=== PATIENT | male | born 1950 | race Caucasian/White ===

== ENCOUNTER 2018-11-04 08:50 | Outpatient (CLI) | payer MEDICARE, BC ==
--- NOTE | 2018-11-04 12:05 | BD ---
DEXA BONE MINERAL DENSITOMETRY EXAM, DENSITY STUDY: HISTORY: Postmenopausal. FINDINGS: Lumbar Spine: BMD (g/cm2) L1 1.097 T-Score: +0.2 L2 1.268 T-Score: +1.6 L3 1.301 T-Score: +1.8 L4 1.256 T-Score: +1.5 L1-L4 1.237 T-Score: +1.3 Femoral Neck: 0.924 T-Score: +0.0 Total Femur: 1.110 T-Score: +0.5 Impression: 1. Normal bone mineral density of the lumbar spine and left femoral neck. 2. Ten-year fracture risk of a major osteoporotic fracture 5.3% and of a hip fracture 0.4%. These f racture probabilities are calculated for an untreated patient. POS: OFF
== END 2018-11-04 08:51 | disposition home or self-care (01) ==
LOC: BICMAMMO 08:50
PROVIDERS: ATTEND Internal Medicine Rheumatology
DX: M81.0 Age-related osteoporosis without current pathological fracture (principal)
CPT/HCPCS: 77080

== ENCOUNTER 2020-10-26 19:00 | Outpatient (CLI) | payer MEDICARE, BC | END 2020-10-26 19:01 | disposition home or self-care (01) | LOC: SLEEPLAB 19:00 | PROVIDERS: ATTEND Internal Medicine | DX: G47.33 Obstructive sleep apnea (adult) (pediatric) (principal); R06.83 Snoring; I10 Essential (primary) hypertension | CPT/HCPCS: 95810 ==

== ENCOUNTER 2023-04-09 05:57 | Day surgery (SDC) | payer MEDICARE, BC ==
[2023-04-04 14:25] VITALS: BMI 32.5
[2023-04-04 14:52] LABS: Hematocrit 46.9 % (38.8-50.0); Hemoglobin 15.9 g/dL (13.5-17.5); Mean Corpuscular HGB CONC 33.9 g/dL (32.0-36.0); Mean Corpuscular Hemoglobin 29.7 pg (27.0-33.0); Mean Corpuscular Volume 87.7 fl (81.2-95.1); Mean Platelet Volume 10.2 fl (7.4-10.4); Platelet Count 210 10x3/uL (150-450); RBC Distribution Width 13.9 % (11.5-14.5); Red Blood Cell (RBC) Count 5.35 10x6/uL (4.32-5.72); White Blood Cell (WBC) Count 9.7 10x3/uL (3.5-10.5)
[2023-04-04 15:04] LABS: INR-International Normal Ratio 1.1; Prothrombin Time 11.8 sec (9.5-12.1)
[2023-04-04 15:19] LABS: Anion Gap 16 mmol/L (10-20); BUN (Urea Nitrogen) 18 mg/dL (8.4-25.7); Calc. Creatinine Clearance 58 mL/min (70-130); Calcium 9.1 mg/dL (7.8-10.44); Carbon Dioxide 29 mmol/L (23-31); Chloride 98 mmol/L (98-107); Estimated GFR 36; Glucose 98 mg/dL (83-110); Potassium 3.8 mmol/L (3.5-5.1); Sodium 139 mmol/L (136-145)
[2023-04-09] MEDS ORDERED: Protamine Sulfate 50 MG/5 ML VIAL ONE (06:48)
[2023-04-09] MEDS ORDERED: Heparin 10,000 UNITS/ 10 ML VIAL ONE (06:48)
[2023-04-09] MEDS ORDERED: Heparin 25,000 units/D5W 500 ML ONE (06:48)
[2023-04-09] MEDS ORDERED: Sevoflurane 250 ML INH ANEST BOTTLE ONE (06:59)
[2023-04-09] MEDS ORDERED: fentaNYL 50 mcg/mL 1 mL Vial ONE (07:28)
[2023-04-09] MEDS ORDERED: PHENYLEPHRINE-NS 100 MCG/ML 10 ML SYRINGE ONE (07:44)
[2023-04-09] MEDS ORDERED: Ondansetron PF 4 MG/2 ML Vial ONE (07:44)
[2023-04-09] MEDS ORDERED: PROPOFOL 200 MG/20 ML VIAL ONE (07:44)
[2023-04-09] MEDS ORDERED: Glycopyrrolate 0.2 MG/ML 5 ML SYRINGE ONE (07:44)
[2023-04-09] MEDS ORDERED: Rocuronium Bromide 10 MG/ML (10ML VIAL) ONE (07:44)
[2023-04-09] MEDS ORDERED: Lidocaine 1% PF 5 ML VIAL ONE (07:44)
[2023-04-09] MEDS ORDERED: Dexamethasone 20 MG/5 ML VIAL ONE (07:44)
[2023-04-09] MEDS ORDERED: NEOSTIGMINE 3 MG/3 ML SYR 3 MG/3 ML SYRINGE ONE (07:44)
== END 2023-04-09 12:50 | disposition home or self-care (01) ==
LOC: SDC 05:57
PROVIDERS: ATTEND Internal Medicine Cardiovascular Disease
PROC: B245ZZ4 Ultrasonography of Left Heart, Transesophageal (ICD-10-PCS; principal; 2023-04-09)
PROC: 4A027FZ Measurement of Cardiac Rhythm, Via Natural or Artificial Opening (ICD-10-PCS; 2023-04-09)
PROC: 4A0274Z Measurement of Cardiac Electrical Activity, Via Natural or Artificial Opening (ICD-10-PCS; 2023-04-09)
DX: I48.19 Other persistent atrial fibrillation (principal); I34.0 Nonrheumatic mitral (valve) insufficiency; E78.5 Hyperlipidemia, unspecified; I10 Essential (primary) hypertension; G47.33 Obstructive sleep apnea (adult) (pediatric); Z87.891 Personal history of nicotine dependence; Z88.8 Allergy status to other drugs, medicaments and biological substances
CPT/HCPCS: 80048; 85027; 85347 ×2; 85610; 93005; 93312; 93609; 93656; 93657; C1732; C1759; C1760; C1894 ×5; C2630; J3010; 93010; C1893; J1100; J1644; J2405; J2704; J2720

== ENCOUNTER 2023-04-10 20:49 | Emergency (ER) | payer MEDICARE, BC ==
[2023-04-10 22:41] LABS: #Basophils 0.1 thou/uL (0.0-0.2); #Monocytes 1.2 thou/uL (0.11-0.59); #Neutrophils 12.5 thou/uL (1.40-6.50); %Basophils 0.5 % (0.0-1.0); %Eosinophils 0.3 % (0.0-10.0); %Lymphocytes 5.5 % (21.0-51.0); %Monocytes 8.4 % (0.0-10.0); %Neutrophils 84.1 % (42.0-75.0); Hematocrit 43.3 % (42.0-52.0); Hemoglobin 14.5 g/dL (14.0-18.0); Mean Corpuscular HGB CONC 33.5 g/dL (32.0-36.0); Mean Corpuscular Hemoglobin 29.2 pg (27.0-31.0); Mean Corpuscular Volume 87.3 fl (78.0-98.0); Platelet Count 166 10x3/uL (130-400); Red Blood Cell (RBC) Count 4.96 mill/uL (4.70-6.10); White Blood Cell (WBC) Count 14.8 10x3/uL (4.8-10.8)
[2023-04-10 22:52] LABS: INR-International Normal Ratio 1.1; PTT 26.1 sec (22.9-36.1); Prothrombin Time 14.6 sec (12.0-14.7)
[2023-04-10 23:06] LABS: ALT (SGPT) 12 U/L (8-55); AST (SGOT) 23 U/L (5-34); Albumin 3.9 g/dL (3.4-4.8); Alkaline Phosphatase 58 U/L (40-110); Anion Gap 13 mmol/L (10-20); BUN (Urea Nitrogen) 21 mg/dL (8.4-25.7); Bilirubin, Total 0.6 mg/dL (0.2-1.2); Calc. Creatinine Clearance 0 mL/min (70-130); Calcium 9.1 mg/dL (7.8-10.44); Carbon Dioxide 25 mmol/L (23-31); Chloride 99 mmol/L (98-107); Estimated GFR 37; Globulin 2.8 g/dL (2.4-3.5); Glucose 147 mg/dL (83-110); Magnesium 2.1 mg/dL (1.6-2.6); Potassium 3.9 mmol/L (3.5-5.1); Protein, Total 6.7 g/dL (5.8-8.1); Sodium 133 mmol/L (136-145)
[2023-04-10 23:09] LABS: Critical Call Chem Troponin I NUR.DM13@2309; Troponin I 1.986 ng/mL (< 0.028)
[2023-04-11] MEDS ORDERED: Acetaminophen 500 MG TAB ONE (01:43)
[2023-04-11] MEDS ORDERED: Ondansetron PF 4 MG/2 ML Vial ONE (02:10)
[2023-04-11] MEDS ORDERED: Aspirin Chewable 81 MG TAB ONE (02:10)
[2023-04-11] MEDS ORDERED: Apixaban 5 MG TAB ONE (02:10)
[2023-04-11] MEDS ORDERED: Morphine 4 MG/ML VIAL ONE (02:10)
[2023-04-11 02:44] LABS: Critical Call Chem Troponin I RESULT DECREASING; Troponin I 1.684 ng/mL (< 0.028)
== END 2023-04-11 03:29 | disposition short-term general hospital (02) ==
LOC: ERS 20:49
DX: R07.89 Other chest pain (principal); I48.91 Unspecified atrial fibrillation; I10 Essential (primary) hypertension; M13.80 Other specified arthritis, unspecified site; Z79.01 Long term (current) use of anticoagulants; Z79.899 Other long term (current) drug therapy
CPT/HCPCS: 36415; 71045; 80053; 83735; 83880; 84484; 85025; 85610; 85730; 93005; 94760; 96374; 96375; J2270; J2405

== ENCOUNTER 2023-05-10 07:36 | Day surgery (SDC) | payer MEDICARE, BC ==
[2023-05-08 11:22] VITALS: BMI 32.5
[2023-05-08 12:29] LABS: Hematocrit 41.2 % (38.8-50.0); Hemoglobin 13.6 g/dL (13.5-17.5); Mean Corpuscular Hemoglobin 28.8 pg (27.0-33.0); Mean Corpuscular Volume 87.3 fl (81.2-95.1); Mean Platelet Volume 10.1 fl (7.4-10.4); Platelet Count 272 10x3/uL (150-450); RBC Distribution Width 13.2 % (11.5-14.5); Red Blood Cell (RBC) Count 4.72 10x6/uL (4.32-5.72); White Blood Cell (WBC) Count 8.1 10x3/uL (3.5-10.5)
[2023-05-08 12:38] LABS: ALT (SGPT) 32 U/L (8-55); AST (SGOT) 24 U/L (5-34); Albumin 3.5 g/dL (3.4-4.8); Alkaline Phosphatase 65 U/L (40-110); Anion Gap 14 mmol/L (10-20); BUN (Urea Nitrogen) 12 mg/dL (8.4-25.7); Bilirubin, Total 0.7 mg/dL (0.2-1.2); Calc. Creatinine Clearance 65 mL/min (70-130); Calcium 8.5 mg/dL (7.8-10.44); Carbon Dioxide 28 mmol/L (23-31); Chloride 101 mmol/L (98-107); Estimated GFR 42; Globulin 2.5 g/dL (2.4-3.5); Glucose 98 mg/dL (83-110); Potassium 4.5 mmol/L (3.5-5.1); Sodium 138 mmol/L (136-145)
[2023-05-08 12:39] LABS: INR-International Normal Ratio 1.2; Prothrombin Time 12.5 sec (9.5-12.1)
== END 2023-05-10 09:44 | disposition home or self-care (01) ==
LOC: SDC 07:36
PROVIDERS: ATTEND Internal Medicine Cardiovascular Disease
PROC: 5A2204Z Restoration of Cardiac Rhythm, Single (ICD-10-PCS; principal; 2023-05-10)
DX: I48.19 Other persistent atrial fibrillation (principal); I48.4 Atypical atrial flutter; I10 Essential (primary) hypertension; E78.5 Hyperlipidemia, unspecified; G47.33 Obstructive sleep apnea (adult) (pediatric); Z88.8 Allergy status to other drugs, medicaments and biological substances; Z87.891 Personal history of nicotine dependence; Z90.49 Acquired absence of other specified parts of digestive tract; Z79.01 Long term (current) use of anticoagulants; Z79.899 Other long term (current) drug therapy; Z98.890 Other specified postprocedural states
CPT/HCPCS: 80053; 85027; 85610; 92960; 93005; 93010